=== PATIENT | male | born 1980 | race Two or more races ===

== ENCOUNTER 2025-11-06 18:34 | Inpatient (IN) | payer OTHER ==
[~2025-11-06] VITALS: Ht 167.6 cm; Wt 81.6 kg
[2025-11-06] MEDS ORDERED: 0.9 % SODIUM CHLORIDE 1,000 ML IV ONE (19:00)
[2025-11-06] MEDS ORDERED: NITROGLYCERIN 0.4 MG TAB.SUBL SL SCH ×2 (19:00→19:30)
--- NOTE | 2025-11-06 19:06 | NUR ---
PACIENTE ALERTA Y ORIENTADO POR 3, REFIERE DOLOR DE PECHO, ACOMPANADO POR HURST AMIGA. SE LE ORIENTA, SE LE REALIZA EKG, SE NOTIFICA AL MEDICO, SE LE ORIENTA SOBRE TRATAMIENTO, PACIENTE REFIERE ENTENDER.
[2025-11-06] MEDS ORDERED: NITROGLYCERIN 0.4 MG TAB.SUBL SL ONE (19:08)
[2025-11-06] MEDS ORDERED: MORPHINE SULFATE 4 MG/ML VIAL IV PRN (19:15)
[2025-11-06] MEDS ORDERED: FAMOTIDINE/PF 20 MG/2 ML VIAL IV ONE (19:15)
[2025-11-06 19:44] LABS: BASO % 0.4 % (0.1-1.2); EOS # 0.03 (0.04-0.54); EOS % 0.2 % (0.7-7.0); LYMPH # 0.83 (1.18-3.74); LYMPH % 6.6 % (19.3-53.1); MEAN PLATELET VOLUME 9.80 fl (9.4-12.4); MONO # 0.76 (0.24-0.82); MONO % 6.1 % (4.7-12.5); NEUT # 10.78 (1.56-6.13); NEUT % 86.4 % (34.0-71.1); RED CELL DISTRIBUTION WIDTH 13.1 % (11.6-14.4)
[2025-11-06] MEDS ORDERED: FAMOTIDINE/PF 20 MG/2 ML VIAL ONE (20:02)
[2025-11-06 20:17] LABS: ALT/SGPT 231.0 U/L (12-78); AST/SGOT 229.0 U/L (15-37); BILIRUBIN TOTAL 3.54 mg/dL (0.3-1.2); BILIRUBIN TOTAL 3.59 mg/dL (0.3-1.2); BILIRUBIN,CONJUGATED 1.19 mg/dL (0.0-0.2); BUN CREA RATIO 16.0 (7.0-25.0); CREATININE SERUM 0.9 mg/dL (0.70-1.30); GFR 91.67; GLOBULINA 3.7 G/DL (2.4-3.5); GLUCOSE FASTING 157.0 mg/dL (65-100); OSMOLALITY SERUM 283.0 MOSM/KG (275-295)
[2025-11-06 22:59] LABS: COCAINE NEGATIVE (NEGATIVE); METHADONE NEGATIVE (NEGATIVE); OPIATES POSITIVE (NEGATIVE)
[2025-11-06 23:16] LABS: THC ( Cannabinoids) NEGATIVE (NEGATIVE)
[2025-11-07] MEDS ORDERED: CEFTRIAXONE SODIUM 1,000 MG VIAL IV STA (04:31)
[2025-11-07] MEDS ORDERED: CEFTRIAXONE SODIUM 1,000 MG VIAL ONE (05:15)
[2025-11-07] MEDS ORDERED: MORPHINE SULFATE 4 MG/ML VIAL IV SCH (14:38)
[2025-11-07] MEDS ORDERED: LACTOBACILLUS ACIDOPHILUS 1 CAP CAP PO SCH (14:39)
[2025-11-07] MEDS ORDERED: FAMOTIDINE/PF 20 MG in 0.9 % SODIUM CHLORIDE 100 ML IV SCH (14:39)
[2025-11-07] MEDS ORDERED: 0.9 % SODIUM CHLORIDE 1,000 ML IV SCH (14:45)
[2025-11-07] MEDS ORDERED: ONDANSETRON HCL 4 MG in 0.9 % SODIUM CHLORIDE 50 ML IV PRN (14:45)
[2025-11-07] MEDS ORDERED: LACTOBACILLUS ACIDOPHILUS 1 CAP CAP PO ONE (15:38)
[2025-11-07] MEDS ORDERED: FAMOTIDINE/PF 20 MG/2 ML VIAL ONE (15:38)
[2025-11-07] MEDS ORDERED: CEFEPIME HCL 2,000 MG VIAL ONE (15:57)
[2025-11-07] MEDS ORDERED: 0.9 % SODIUM CHLORIDE 500 ML IV SCH (16:00)
[2025-11-07 16:35] VITALS: BP 120/80; O2SAT 98
[2025-11-07] MEDS ORDERED: CEFEPIME HCL 2,000 MG in 0.9 % SODIUM CHLORIDE 100 ML IV SCH (17:00)
[2025-11-08 03:26] VITALS: BP 115/70; O2SAT 100
[2025-11-08 06:57] LABS: BASO % 1.2 % (0.1-1.2); EOS # 0.23 (0.04-0.54); EOS % 5.4 % (0.7-7.0); LYMPH # 0.92 (1.18-3.74); LYMPH % 21.7 % (19.3-53.1); MEAN PLATELET VOLUME 10.20 fl (9.4-12.4); MONO # 0.40 (0.24-0.82); MONO % 9.4 % (4.7-12.5); NEUT # 2.63 (1.56-6.13); NEUT % 62.1 % (34.0-71.1); RED CELL DISTRIBUTION WIDTH 13.4 % (11.6-14.4)
[2025-11-08 07:31] LABS: INR 1.04
[2025-11-08 07:42] LABS: BUN CREA RATIO 10.0 (7.0-25.0); CREATININE SERUM 0.67 mg/dL (0.70-1.30); GFR 128.86; GLUCOSE FASTING 87.0 mg/dL (65-100); OSMOLALITY SERUM 288.0 MOSM/KG (275-295)
[2025-11-08] MEDS ORDERED: CEFEPIME HCL 2,000 MG in 0.9 % SODIUM CHLORIDE 100 ML IV SCH (09:00)
[2025-11-08 10:24] VITALS: BP 130/81; O2SAT 98
[2025-11-08] MEDS ORDERED: METRONIDAZOLE/SODIUM CHLORIDE 500 MG/100 ML PIGGYBACK IV STA (12:18)
[2025-11-08] MEDS ORDERED: AA 2.36%/D6.8W/FAT/E-LYTES NO9 1,440 ML IV SCH (17:00)
[2025-11-08 20:35] VITALS: BP 125/73
[2025-11-08] MEDS ORDERED: METRONIDAZOLE/SODIUM CHLORIDE 500 MG/100 ML PIGGYBACK IV SCH (21:00)
[2025-11-08 21:20] LABS: BUN CREA RATIO 14.0 (7.0-25.0); CHOL HDL RATIO 4.4 (0-5.0); CREATININE SERUM 0.64 mg/dL (0.70-1.30); GFR 135.86; GLUCOSE FASTING 76.0 mg/dL (65-100); HDL 43.0 mg/dl (40-60); LDL 129.0 mg/dl (0-130); OSMOLALITY SERUM 282.0 MOSM/KG (275-295); VLDL 19.0 (0-39)
[2025-11-09] VITALS: BP 125/78; O2SAT 99
[2025-11-09 08:43] VITALS: BP 122/84; O2SAT 98
[2025-11-09 10:02] LABS: ALT/SGPT 279.0 U/L (12-78); AST/SGOT 55.0 U/L (15-37); BILIRUBIN TOTAL 1.57 mg/dL (0.3-1.2); BUN CREA RATIO 14.0 (7.0-25.0); CREATININE SERUM 0.66 mg/dL (0.70-1.30); GFR 131.12; GLOBULINA 3.3 G/DL (2.4-3.5); GLUCOSE FASTING 102.0 mg/dL (65-100); OSMOLALITY SERUM 278.0 MOSM/KG (275-295)
[2025-11-09 18:10] VITALS: BP 131/80; O2SAT 100
[2025-11-10 02:43] VITALS: BP 112/68; O2SAT 96
[2025-11-10 05:35] LABS: BASO % 0.8 % (0.1-1.2); EOS # 0.33 (0.04-0.54); EOS % 6.8 % (0.7-7.0); LYMPH # 1.04 (1.18-3.74); LYMPH % 21.3 % (19.3-53.1); MEAN PLATELET VOLUME 10.00 fl (9.4-12.4); MONO # 0.53 (0.24-0.82); MONO % 10.9 % (4.7-12.5); NEUT # 2.92 (1.56-6.13); NEUT % 59.8 % (34.0-71.1); RED CELL DISTRIBUTION WIDTH 12.8 % (11.6-14.4)
[2025-11-10 05:59] LABS: ALT/SGPT 190.0 U/L (12-78); AST/SGOT 31.0 U/L (15-37); BILIRUBIN TOTAL 1.09 mg/dL (0.3-1.2); BUN CREA RATIO 11.0 (7.0-25.0); CREATININE SERUM 0.66 mg/dL (0.70-1.30); GFR 131.12; GLOBULINA 2.9 G/DL (2.4-3.5); GLUCOSE FASTING 102.0 mg/dL (65-100); OSMOLALITY SERUM 281.0 MOSM/KG (275-295)
[2025-11-10] MEDS ORDERED: CLONAZEPAM 0.5 MG TABLET PO ONE (08:45)
[2025-11-10 09:13] VITALS: BP 133/85; O2SAT 99
[2025-11-10 18:48] VITALS: BP 150/80; O2SAT 100
[2025-11-11 01:13] VITALS: BP 122/79; O2SAT 98
[2025-11-11 06:21] LABS: BASO % 0.8 % (0.1-1.2); EOS # 0.32 (0.04-0.54); EOS % 6.6 % (0.7-7.0); LYMPH # 0.99 (1.18-3.74); LYMPH % 20.5 % (19.3-53.1); MEAN PLATELET VOLUME 9.80 fl (9.4-12.4); MONO # 0.42 (0.24-0.82); MONO % 8.7 % (4.7-12.5); NEUT # 3.04 (1.56-6.13); NEUT % 63.0 % (34.0-71.1); RED CELL DISTRIBUTION WIDTH 12.8 % (11.6-14.4)
[2025-11-11 06:34] LABS: INR 1.06
[2025-11-11 07:13] LABS: ALT/SGPT 159.0 U/L (12-78); AST/SGOT 25.0 U/L (15-37); BILIRUBIN TOTAL 1.42 mg/dL (0.3-1.2); BILIRUBIN,CONJUGATED 0.32 mg/dL (0.0-0.2); BUN CREA RATIO 10.0 (7.0-25.0); CREATININE SERUM 0.68 mg/dL (0.70-1.30); GFR 126.68; GLOBULINA 3.3 G/DL (2.4-3.5); GLUCOSE FASTING 93.0 mg/dL (65-100); OSMOLALITY SERUM 281.0 MOSM/KG (275-295)
[2025-11-11 08:36] VITALS: BP 130/80; O2SAT 98
[2025-11-11] MEDS ORDERED: CEFEPIME HCL 2,000 MG VIAL ONE (15:39)
[2025-11-11] MEDS ORDERED: BUPIVACAINE HCL/MPF 0.5% 30ML VIAL ONE (16:38)
[2025-11-11] MEDS ORDERED: ISOPROPYL ALCOHOL 30 ML OUNCE TOP ONE (16:39)
[2025-11-11] MEDS ORDERED: LIDOCAINE HCL 1%/EPINEPHRINE 20ML VIAL IJ ONE (16:39)
[2025-11-11] MEDS ORDERED: ONDANSETRON HCL 2 MG/ML VIAL IV PRN (17:45)
[2025-11-11] MEDS ORDERED: KETOROLAC TROMETHAMINE 30 MG VIAL IV PRN (17:45)
[2025-11-11] MEDS ORDERED: 0.9 % SODIUM CHLORIDE 1,000 ML IV SCH (19:30)
[2025-11-11] MEDS ORDERED: METRONIDAZOLE/SODIUM CHLORIDE 500 MG/100 ML PIGGYBACK IV ONE (20:11)
[2025-11-12 01:59] VITALS: BP 131/81; O2SAT 99
[2025-11-12 06:15] LABS: BASO % 0.3 % (0.1-1.2); EOS # 0.09 (0.04-0.54); EOS % 1.0 % (0.7-7.0); LYMPH # 0.89 (1.18-3.74); LYMPH % 10.0 % (19.3-53.1); MEAN PLATELET VOLUME 10.10 fl (9.4-12.4); MONO # 0.66 (0.24-0.82); MONO % 7.4 % (4.7-12.5); NEUT # 7.21 (1.56-6.13); NEUT % 81.1 % (34.0-71.1); RED CELL DISTRIBUTION WIDTH 12.8 % (11.6-14.4)
[2025-11-12 08:30] VITALS: BP 139/79; O2SAT 98
== END 2025-11-12 13:24 | disposition home or self-care (01) | DRG 419 ==
LOC: ER 18:34 → MEDJ 11-07 15:58 → MEDI 11-07 15:58 → SEC-K 11-07 15:58 → MEDJ 11-07 16:33 → MEDI 11-08 15:13
PROVIDERS: General Practice; Internal Medicine; Surgery; ADMIT Student in an Organized Health Care Education/Training Program; ATTEND Student in an Organized Health Care Education/Training Program
PROC: BW40ZZZ Ultrasonography of Abdomen (ICD-10-PCS; 2025-11-06)
PROC: BF37ZZZ Magnetic Resonance Imaging (MRI) of Pancreas (ICD-10-PCS; 2025-11-08)
PROC: 0WQF4ZZ Repair Abdominal Wall, Percutaneous Endoscopic Approach (ICD-10-PCS; 2025-11-11)
PROC: 0FT44ZZ Resection of Gallbladder, Percutaneous Endoscopic Approach (ICD-10-PCS; principal; 2025-11-11 17:45)
DX: K80.20 Calculus of gallbladder without cholecystitis without obstruction (principal); I10 Essential (primary) hypertension